=== PATIENT | female | born 1980 | race Caucasian/White ===

== ENCOUNTER 2022-12-23 20:32 | Emergency (ER) | payer BC, OTHER ==
[~2022-12-23 20:32] MED LIST: Lactated Ringer's 1,000 ML BAG ONE
[2022-12-23] MEDS ORDERED: Ondansetron PF 4 MG/2 ML Vial ONE (23:30)
[2022-12-23] MEDS ORDERED: Dicyclomine 20 MG/2 ML VIAL ONE (23:30)
[2022-12-23] MEDS ORDERED: Ketorolac Tromethamine 60 MG/2 ML VIAL ONE (23:30)
[2022-12-24 00:03] LABS: Band 4 % (5-11); Hematocrit 44.7 % (36.0-47.0); Hemoglobin 14.7 g/dL (12.0-16.0); Lymphocytes 11 % (21-51); MDiff Complete? YES; Macrocytosis SLIGHT = 6-15 cells (100X) (0-5/hpf); Mean Corpuscular HGB CONC 32.9 g/dL (32.0-36.0); Mean Platelet Volume 8.3 fL (7.4-10.4); Monocytes 2 % (0-10); Neutrophil 83 % (42-75); Platelet Adequacy Comment Appears Adequate; Platelet Count 138 10x3/uL (130-400); RBC Distribution Width 12.8 % (11.5-14.5); Red Blood Cell (RBC) Count 4.47 mill/uL (4.20-5.40); Stomatocytes SLIGHT = 2-5 cells (100X) (0-1/hpf); White Blood Cell (WBC) Count 7.7 10x3/uL (4.8-10.8)
[2022-12-24 00:08] LABS: ALT (SGPT) 44 U/L (8-55); AST (SGOT) 40 U/L (5-34); Albumin 4.2 g/dL (3.5-5.0); Alkaline Phosphatase 50 U/L (40-110); Anion Gap 16 mmol/L (10-20); BUN (Urea Nitrogen) 6 mg/dL (7.0-18.7); Bilirubin, Total 0.5 mg/dL (0.2-1.2); Calc. Creatinine Clearance 0 mL/min (70-130); Calcium 8.7 mg/dL (7.8-10.44); Carbon Dioxide 20 mmol/L (22-29); Chloride 100 mmol/L (98-107); Estimated GFR 108; Glucose 100 mg/dL (70-105); Lipase 8 U/L (8-78); Magnesium 1.5 mg/dL (1.6-2.6); Potassium 3.2 mmol/L (3.5-5.1); Protein, Total 7.2 g/dL (6.0-8.3); Sodium 133 mmol/L (136-145)
[2022-12-24] MEDS ORDERED: Potassium Chloride 20 MEQ TAB ONE (00:18)
[2022-12-24] MEDS ORDERED: Magnesium 2 GM/50 ML BAG (IN WATER) ONE (00:18)
== END 2022-12-24 01:42 | disposition home or self-care (01) ==
LOC: MADERS 20:32
DX: E86.0 Dehydration (principal); E87.6 Hypokalemia; E83.42 Hypomagnesemia; R19.7 Diarrhea, unspecified; R10.13 Epigastric pain; R10.10 Upper abdominal pain, unspecified
CPT/HCPCS: 80053; 83605; 83690; 83735; 85025; 87804; 93005; 94760; 96365; 96372; 96375; J1885; J2405; J3475; J7120